=== PATIENT | female | born 1995 | race Two or more races ===

== ENCOUNTER 2025-03-11 09:26 | Emergency (ER) | payer MEDICAID, OTHER ==
[~2025-03-11] VITALS: Ht 154.9 cm; Wt 74.0 kg
[~2025-03-11 09:26] MED LIST: NITR-104 PO; OLAN5TAB52 PO
[2025-03-11 10:43] VITALS: TEMP 97.5
[2025-03-11 11:38] LABS: PLATELET COUNT (AUTO) 215 K/uL (150-450); RED BLOOD CELL COUNT(AUTO) 5.28 MIL/uL (4.00-5.20); RED CELL DISTRIBUTION WIDTH 14.5 % (11.5-14.5); WHITE BLOOD COUNT (AUTO) 9.6 K/uL (4.5-11.0)
[2025-03-11 11:47] LABS: CALCIUM, TOTAL 8.6 mg/dL (8.8-10.5); CREATININE 0.64 mg/dL (0.60-1.30); GLOMERULAR FILTR. RATE CALC > 60 mL/min (>60); GLUCOSE,RANDOM 94 mg/dL (70-110); SODIUM SERUM 139 mmol/L (136-145); UREA NITROGEN, BLOOD 9 mg/dL (7-18)
[2025-03-11] MEDS ORDERED: SERT-158 PO (11:54)
[2025-03-11 12:51] LABS: APPEARANCE,URINE HAZY (CLEAR); GLUCOSE, URINE (UA) NEGATIVE (NEGATIVE); LEUKOCYTE ESTERASE ,URINE LARGE (NEGATIVE); NITRATE,URINE NEGATIVE (NEGATIVE); OCCULT BLOOD,URINE SMALL (NEGATIVE); SPECIFIC GRAVITIY, URINE 1.009 (1.003-1.030)
[2025-03-11 13:25] LABS: ASPARTATE AMINOTRANSFERASE 39.0 U/L (15-37); TOTAL PROTEIN, SERUM 6.7 g/dL (6.4-8.2)
[2025-03-11] MEDS ORDERED: IOHEXOL 350 MG/ML 100 ML VIAL ONE (13:33)
[2025-03-11] MEDS ORDERED: SODIUM CHLORIDE 0.9% 100 ML ONE (13:33)
[2025-03-11 13:42] LABS: SQUAMOUS EPITHELIAL CELL,UR Many /LPF (None Seen)
[2025-03-11] MEDS: KETOROLAC TROMETHAMINE 30 MG/ML VIAL IVP ONE (15:24)
[2025-03-11] MEDS: CefTRIAXone 1 GM/DEXTROSE 50 ML IV ONE (15:24)
[2025-03-11] MEDS: FAMOTIDINE 20 MG/2 ML VIAL IVP ONE (15:24)
[2025-03-11 17:25] VITALS: BP 110/77; PULSE 67; RESP 18; O2SAT 98
== END 2025-03-11 18:13 | disposition home or self-care (01) ==
LOC: EMS 09:28
DX: N39.0 Urinary tract infection, site not specified (principal); I10 Essential (primary) hypertension; K21.9 Gastro-esophageal reflux disease without esophagitis; F10.90 Alcohol use, unspecified, uncomplicated; F12.90 Cannabis use, unspecified, uncomplicated; Z79.899 Other long term (current) drug therapy; Y90.9 Presence of alcohol in blood, level not specified
CPT/HCPCS: 99285; 74177; 96365; 76705; 96375; 71045; 80048; 80076; 81001; 83690; 84703; 85025; 87086; 36415; J1885; Q9967; J0696; J3490; J7050